=== PATIENT | male | born 1950 | race Caucasian/White ===

== ENCOUNTER 2024-11-30 11:11 | Emergency (ER) | payer MEDICARE ==
[~2024-11-30] VITALS: Ht 175.3 cm; Wt 98.5 kg
[2024-11-30] MEDS ORDERED: CHLO125TA PO (11:47)
[2024-11-30] MEDS ORDERED: ATOR1TAB19 PO (11:47)
[2024-11-30] MEDS ORDERED: AMLO25TA PO (11:47)
[2024-11-30] MEDS: TETANUS/DIPHTH/ACEL. PERTUSSIS 0.5 ML SYR IM ONE (13:22)
[2024-11-30] MEDS: LIDOCAINE 1% MDV 20 ML VIAL SC ONE (15:10)
[2024-11-30] MEDS ORDERED: AMOX875T2 PO (16:09)
[2024-11-30 16:14] VITALS: BP 132/69; TEMP 96.7; O2SAT 98
== END 2024-11-30 16:15 | disposition home or self-care (01) ==
LOC: M ED 11:11
DX: S61.246A Puncture wound with foreign body of right little finger without damage to nail, initial encounter (principal); W45.8XXA Other foreign body or object entering through skin, initial encounter; Y92.9 Unspecified place or not applicable; Y93.9 Activity, unspecified; Y99.9 Unspecified external cause status; Z88.2 Allergy status to sulfonamides